=== PATIENT | female | born 1995 | race Caucasian/White ===

== ENCOUNTER 2017-12-14 11:58 | Emergency (ER) | payer OTHER ==
--- NOTE | 2017-12-14 12:23 | ED Physician Documentation ---
Fall - HISTORIAN Historian: patient - HPI Stated Complaint: left foot/ankle pain Chief Complaint: Lower Extremity Problem Additional Information: Patient presents to ED after tripping over parking block while leaving work yesterday. She states she went home and iced the ankle/foot all night but awoke to pain on the lateral ankle/foot. She is able to walk on it but it hurts. Onset: yesterday Where: work Context: tripped r: moderate Associated Symptoms:: no loss of consciousness Location of Pain/Injury: lower extremity (left foot/ankle) Injury to Right Extremity: none Injury to Left Extremity: ankle, foot - ROS CONST: no problems NEURO: denies: dizziness MS/SKIN/LYMPH: denies: weakness EYES/ENT: none CVS/RESP: none GI/: denies: problems urinating, nausea, vomiting - PAST HX Past History: none Allergies/Adverse Reactions: Allergies Allergy/AdvReac Type Severity Reaction Status Date / Time No Known Allergies Allergy Verified 12/14/17 12:08 Home Medications: Ambulatory Orders Medication Instructions Recorded Dextroamphetamine/Amphetamine 5 mg PO DAILY PRN 12/14/17 [Adderall 5 mg Tablet] Lisdexamfetamine Dimesylate 60 mg PO DAILY 12/14/17 [Vyvanse] - SOCIAL HX Smoking History: non-smoker Alcohol Use: none Drug Use: none - FAMILY HX Family History: none Progress - Results/Orders Results/Orders: Three views right foot CLINICAL HISTORY: Pain. FINDINGS: Examination right foot in plantar, lateral and oblique views fails to demonstrate evidence of fracture or dislocation. There is no lytic or blastic lesion. IMPRESSION: Negative study. Electronically signed on Dec 14, 2017 1:03:00 PM CDT by: Aníbal Alba Three views of the left ankle CLINICAL HISTORY: Pain. FINDINGS: Examination left ankle in AP, lateral oblique views fails to demonstrate evidence of fracture. The ankle mortise is anatomic. There is no lytic or blastic lesion. IMPRESSION: No fracture. Electronically signed on Dec 14, 2017 1:02:29 PM CDT by: Aníbal Alba ED Results Lab/Radiology - Orders Orders: ED Orders Category Date Time Status FOOT 3 VIEWS OR MORE [RAD] Stat Exams 12/14/17 Ordered LEFT ANKLE [ANKLE 3 VIEWS OR MORE] [RAD] Stat Exams 12/14/17 Ordered URINE HCG Stat Lab 12/14/17 Uncollected Fall Physical Exam - Physical Exam General Appearance: no acute distress Head: non-tender Neck: non-tender Eye: KYLE ENT: nml external inspection Resp/CVS: chest non-tender, breath sounds nml Abdomen: soft, no organomegaly, normal bowel sounds, no abdominal bruit, no distension Neuro: oriented x3, CN's nml as tested, sensation nml, motor nml, mood/affect nm l, steward/stewardess bath nml, reflexes nml, steward/stewardess bath symmetrical Skin: color nml, no rash, nml palp., dry Back: normal inspection, no CVA tenderness Extremities: nml color/temp, other (left foot ecchymosis at the base of 5th metatarsal) Joint: joints nml, nml ROM, Nml gait/weight bearing Discharge Clincal Impression: Strain of left ankle and foot Qualifiers: Encounter type: initial encounter Qualified Code(s): S96.912A - Strain of unspecified muscle and tendon at ankle and foot level, left foot, initial encounter Referrals: Primary Doctor,No [Primary Care Provider] - 2 Days Additional Instructions: Tylenol and/or Ibuprofen as needed for pain. Keep leg elevated when possible. Apply ice to affected area Disposition: 01 HOME, SELF-CARE Decision to Admit: NO Date of Decison to Admit: 12/14/17 Decision Time: 13:10
[2017-12-14 12:35] VITALS: BP 104/65
--- NOTE | 2017-12-14 13:35 | Diagnostic Imaging Report ---
CHUY KENDRICK [facility] [address] [facility] [address] [address] Report Submission Date: Dec 14, 2017 1:02:29 PM CDT Patient Study Name: KEVIN COUGHLIN Date: Dec 14, 2017 12:25:39 PM CDT Modality Type: DX Gender: F Description: LOWER EXTREMITY : 89 Institution: [facility] Physician: CHUY KENDRICK Three views of the left ankle CLINICAL HISTORY: Pain. FINDINGS: Examination left ankle in AP, lateral oblique views fails to demonstrate evidence of fracture. The ankle mortise is anatomic. There is no lytic or blastic lesion. IMPRESSION: No fracture. Electronically signed on Dec 14, 2017 1:02:29 PM CDT by: Aníbal CHEN
--- NOTE | 2017-12-14 13:36 | Diagnostic Imaging Report ---
CHUY KENDRICK [facility] [address] [facility] [address] [address] Report Submission Date: Dec 14, 2017 1:03:00 PM CDT Patient Study Name: KEVIN COUGHLIN Date: Dec 14, 2017 12:22:23 PM CDT Modality Type: DX Gender: F Description: LOWER EXTREMITY : 89 Institution: [facility] Physician: CHUY KENDRICK Three views right foot CLINICAL HISTORY: Pain. FINDINGS: Examination right foot in plantar, lateral and oblique views fails to demonstrate evidence of fracture or dislocation. There is no lytic or blastic lesion. IMPRESSION: Negative study. Electronically signed on Dec 14, 2017 1:03:00 PM CDT by: Aníbal CHEN
== END 2017-12-14 13:47 | disposition home or self-care (01) ==
LOC: ED 11:58
DX: S96.912A Strain of unspecified muscle and tendon at ankle and foot level, left foot, initial encounter (principal); X58.XXXA Exposure to other specified factors, initial encounter; Y92.9 Unspecified place or not applicable; Y93.01 Activity, walking, marching and hiking; Y99.9 Unspecified external cause status
CPT/HCPCS: 73610; 73630; 81025; 99282